=== PATIENT | male | born 1980 | race Caucasian/White ===

== ENCOUNTER 2017-07-03 14:39 | Emergency (ER) | payer OTHER ==
[~2017-07-03] VITALS: Ht 188 cm; Wt 121.1 kg
[2017-07-03 16:06] VITALS: BP 139/90
== END 2017-07-03 16:06 | disposition home or self-care (01) ==
LOC: ED 14:39
DX: R10.31 Right lower quadrant pain (principal); N45.1 Epididymitis; M54.5 Low back pain
CPT/HCPCS: Q0092

== ENCOUNTER 2017-11-14 17:37 | Emergency (ER) | payer OTHER ==
[~2017-11-14] VITALS: Ht 188 cm; Wt 133.3 kg
[2017-11-14 17:39] VITALS: Ht 188 cm; Wt 133.3 kg
[2017-11-14 18:56] LABS: BASOPHIL % 0.5 % (0-2)
[2017-11-14 18:57] LABS: RED CELL DISTRIBUTION WIDTH 14.6 % (11.5-14.5)
[2017-11-14 18:58] LABS: PLATELET COUNT 457 x10^3mcL (130-400)
[2017-11-14 19:09] LABS: CALCIUM 8.6 mg/dL (8.5-10.1); CHLORIDE SERUM 104 mmol/L (98-107); CREATININE SERUM 1.1 mg/dL (0.7-1.3); GFR1 > 60 mL/min; GLUCOSE SERUM 88 mg/dL (74-106); POTASSIUM SERUM 4.1 mmol/L (3.5-5.1); SODIUM SERUM 140 mmol/L (136-145)
[2017-11-14 19:14] LABS: ALKALINE PHOSPHATASE 51 U/L (46-116); ALT/SGPT 170 U/L (16-63); AST/SGOT 53 U/L (15-37); BILIRUBIN TOTAL 0.65 mg/dL (0.20-1.00); TOTAL PROTEIN, SERUM 7.6 g/dL (6.4-8.2)
[2017-11-14 19:37] VITALS: BP 169/87
== END 2017-11-14 20:16 | disposition home or self-care (01) ==
LOC: ED 17:37
PROVIDERS: Emergency Medicine
DX: R06.02 Shortness of breath (principal); R09.81 Nasal congestion
CPT/HCPCS: 36415; 83880; Q0092